=== PATIENT | male | born 1985 | race Caucasian/White ===

== ENCOUNTER 2023-10-20 19:00 | Emergency (ER) | payer MEDICAID ==
[~2023-10-20] VITALS: Ht 172.7 cm; Wt 90.4 kg
[2023-10-20 19:11] VITALS: BP 119/82; PULSE 64; RESP 16; TEMP 97.9; O2SAT 98
--- NOTE | 2023-10-20 19:50 | NUR ---
patient ambulated to bed 5
[2023-10-20 19:55] VITALS: O2SAT 97
--- NOTE | 2023-10-20 19:55 | NUR ---
37 yo male pt presents to the ED with complaints of a foreign body in his right eye with eye pain and irritation x today. Pt states he thinks it's a piece of metal that went into his eye. Pt states he was seen at urgent care where they tried to irrigate the eye but had no relief. Pt states they did a fluorescein which showed a foreign body, pt was sent here for further evaluation. Pt denies any other associated symptoms. Patient states he does not wear contact lenses. nkda denies med hx
[2023-10-20] MEDS: FLUORESCEIN OPTH STRIP 1 MG OP ONE (21:00)
--- NOTE | 2023-10-20 21:47 | NUR ---
DR. BEDOLLA EXAMINING PT.
[2023-10-20] MEDS ORDERED: ERYT5OIN51 RIGHT EYE (21:53)
--- NOTE | 2023-10-20 22:22 | NUR ---
Patient discharged with v/s stable. Written and verbal after care instructions given and explained. Patient verbalized understanding. Ambulatory with steady gait. All questions addressed prior to discharge. Advised to follow up with PMD.
== END 2023-10-20 22:22 | disposition home or self-care (01) ==
LOC: MED 19:00
DX: S05.01XA Injury of conjunctiva and corneal abrasion without foreign body, right eye, initial encounter (principal); Z79.899 Other long term (current) drug therapy; X58.XXXA Exposure to other specified factors, initial encounter; Y92.89 Other specified places as the place of occurrence of the external cause; Y93.89 Activity, other specified; Y99.8 Other external cause status
CPT/HCPCS: 99283